=== PATIENT | female | born 1960 | race Caucasian/White ===

== ENCOUNTER 2016-11-09 05:43 | Day surgery (SDC) | payer OTHER ==
[~2016-11-09] VITALS: Ht 160 cm; Wt 103.0 kg
[~2016-11-09 05:43] MED LIST: ASPIR 8181 M1 PO; ATIVAN1 MG PO; CARBATROL-ER300 MG PO; LAMICTAL150 M1 PO; LASIX40 MG PO; PRAVACHOL20 MG PO; ZONEGRAN100 MG PO
[2016-11-09 06:38] VITALS: BP 144/68
[2016-11-09 10:13] VITALS: BP 145/67
[2016-11-09 11:39] VITALS: BP 143/60
== END 2016-11-09 11:35 | disposition home or self-care (01) ==
LOC: SDC
DX: N95.0 Postmenopausal bleeding (principal); N84.0 Polyp of corpus uteri; N89.6 Tight hymenal ring; N85.4 Malposition of uterus; E66.9 Obesity, unspecified; Z68.41 Body mass index [BMI] 40.0-44.9, adult; G40.909 Epilepsy, unspecified, not intractable, without status epilepticus; R62.50 Unspecified lack of expected normal physiological development in childhood; Z79.82 Long term (current) use of aspirin; Z86.718 Personal history of other venous thrombosis and embolism; Z85.79 Personal history of other malignant neoplasms of lymphoid, hematopoietic and related tissues; Z88.8 Allergy status to other drugs, medicaments and biological substances
CPT/HCPCS: 88305; J0330; J2250; J2405; J3010